=== PATIENT | male | born 1970 | race Caucasian/White ===

== ENCOUNTER 2016-04-09 10:55 | Emergency (ER) | payer MEDICAID ==
[2016-04-09 11:19] VITALS: BP 155/103
--- NOTE | 2016-04-09 13:01 | EDM.PDOC ---
ED HPI DIABETIC EMERGENCY - General Chief Complaint: Diabetic Complaint Stated Complaint: DIABETIC/FEET CRACKED REALLY BAD Time Seen by Provider: 04/09/16 11:47 Source: Reports: Patient, Family, RN notes reviewed History Limitations: Reports: No limitations - History of Present Illness INITIAL COMMENTS - FREE TEXT/NARRATIVE: 45-year-old gentleman presents emergency department today complaining of cracked feet, he has noticed blood on the bottom of his feet yesterday he thinks his feet have gotten worse over the last week or so he is also not been feeling well feeling nausea last couple of days he admits to having known history of diabetes over the last year her last hemoglobin A1c was 6.5 - Related Data Allergies/ADRs: Allergies Allergy/AdvReac Type Severity Reaction Status Date / Time codeine Allergy Hives Verified 04/09/16 11:32 morphine Allergy Itching Verified 04/09/16 11:32 Home Meds: Home Meds Fluticasone Propionate [Flonase] 1 spray NASBOTH DAILY PRN 10/22/13 [History] atorvaSTATin Calcium [Atorvastatin Calcium] 40 mg PO DAILY 10/22/13 [History] oxyCODONE 10 mg PO QID PRN 10/22/13 [History] oxyCODONE ER [OxyCONTIN] 20 mg PO BID 10/22/13 [History] Aspirin 81 mg PO DAILY 02/07/15 [History] Multivitamin with Minerals [Multiple Vitamin] 1 tab PO DAILY 02/07/15 [History] Ammonium Lactate 1 dose TOP DAILY 04/16/15 [History] Omeprazole 20 mg PO DAILY 04/16/15 [History] Sertraline HCl 100 mg PO DAILY 04/16/15 [History] Dulaglutide [Trulicity] 0.75 ml SUBCNJ WEEKLY 01/29/16 [History] Past Medical History HEENT History: Reports: Allergic rhinitis Cardiovascular History: Reports: High cholesterol, Hypertension Respiratory History: Reports: Sleep apnea Other Respiratory History: c-pap Gastrointestinal History: Reports: GERD, Irritable bowel syndrome Musculoskeletal History: Reports: Back pain, chronic Psychiatric History: Reports: Anxiety Endocrine/Metabolic History: Reports: Diabetes, type II, Obesity/BMI 30+ Dermatologic History: Reports: Cellulitis - Infectious Disease History Infectious Disease History: Reports: Chicken pox - Past Surgical History Neurological Surgical History: Reports: Lumbar spine Musculoskeletal Surgical History: Reports: Other (see below) Other Musculoskeletal Surgeries/Procedures:: back fusion L4-5 01/2014 Social & Family History - Tobacco Use Smoking Status *Q: Former Smoker Years of Tobacco use: 1 Packs/Tins Daily: 0.5 Tobacco Use Comment: Quit a month ago. Second Hand Smoke Exposure: No - Caffeine Use Caffeine Use: Reports: Coffee, Soda - Alcohol Use Days Per Week of Alcohol Use: 0 - Recreational Drug Use Recreational Drug Use: No - Living Situation & Occupation Living situation: Reports: , with spouse Occupation: employed (lives in [place], [place] with . has 4 children.) ED ROS GENERAL - Review of Systems Review Of Systems: See Below Constitutional: Reports: weakness HEENT: Reports: No symptoms Respiratory: Reports: no symptoms Cardiovascular: Reports: No symptoms GI/Abdominal: Reports: No symptoms : Reports: no symptoms Musculoskeletal: Reports: foot pain Skin: Reports: wound Neurological: Reports: no symptoms ED EXAM GENERAL NO PERIP PULSE - Physical Exam Exam: See Below Text/Narrative:: Examiner the feet demonstrates a thick callus both heels encompassing the plantar surface of the feet he does have a small open wound on the right heel approximately 7 mm in diameter otherwise no erythema is appreciated he still demonstrates hair on his toes pedal pulses palpable at 2+ Exam Limited By: No limitations General Appearance: alert, WD/WN, no apparent distress Respiratory/Chest: no respiratory distress Course - Vital Signs Last Recorded V/S: Last Vital Signs Temp 97.0 F 04/09/16 11:07 Pulse 101 H 04/09/16 11:07 Resp 18 04/09/16 11:07 BP 155/103 H 04/09/16 11:07 Pulse Ox 95 04/09/16 11:07 - Orders/Labs/Meds Labs: Laboratory Tests 04/09/16 04/09/16 04/09/16 Range/Units 12:10 12:10 12:10 WBC 11.1 H (4.5-11.0) K/uL RBC 6.08 H (4.30-5.90) M/uL Hgb 17.1 H (12.0-15.0) g/dL Hct 49.8 (40.0-54.0) % MCV 82 (80-98) fL MCH 28 (27-31) pg MCHC 34 (32-36) % Plt Count 301 (150-400) K/uL Neut % (Auto) 52 (36-66) % Lymph % (Auto) 36 (24-44) % [place] % (Auto) 9 H (2-6) % Eos % (Auto) 3 (2-4) % Baso % (Auto) 1 (0-1) % Sodium 137 L (140-148) mmol/L Potassium 4.7 (3.6-5.2) mmol/L Chloride 100 (100-108) mmol/L Carbon Dioxide 30 (21-32) mmol/L Anion Gap 11.7 (5.0-14.0) mmol/L BUN 17 (7-18) mg/dL Creatinine 1.1 (0.8-1.3) mg/dL Est Cr Clr Drug Dosing 93.08 mL/min Estimated GFR (MDRD) > 60 (>60) Glucose 169 H (74-106) mg/dL Calcium 9.0 (8.5-10.1) mg/dL C-Reactive Protein 0.63 H (0.0-0.3) mg/dL Departure - Departure Time of Disposition: 13:00 Disposition: Home, Self-Care 01 Condition: good Clinical Impression: Diabetic foot ulcer Qualifiers: Diabetes mellitus type: type 2 Laterality: right Qualified Code(s): E11.621 - Type 2 diabetes mellitus with foot ulcer; L97.519 - Non-pressure chronic ulcer of other part of right foot with unspecified severity Forms: ED Department Discharge Additional Instructions: try gabapentin one tablet 3 times a day please start the dose one tab once a day followed by 1 tablet twice a day to the full dose of one tablet 3 times a day, keep your appointment with wound care Tuesday next at 2:30 in the afternoon, call return to the ED with worsening of symptoms - Assessment/Plan Plan: Assessment Acuity = acute Site and laterality = probable diabetic foot ulcer right heel Etiology = improper foot care diabetes mellitus type 2 Manifestations = none Location of injury = home Lab values = CBC, BMP within normal limits CRP mildly elevated at 0.63 Plan I did review lab work with him I also discussed the case with the wound care clinic they agreed to see him on Tuesday of next week in the afternoon for further care and evaluation he does complain of burning and pain sensation in his feet started gabapentin 300 mg by mouth 3 times a day Patient was in agreement with the plan all questions were answered, they were instructed to return to the emergency department or call for worsening symptoms. This note was dictated using [employer] voice recognition software please call with any questions.
== END 2016-04-09 13:09 | disposition home or self-care (01) ==
LOC: JP.ED 10:55
DX: E11.621 Type 2 diabetes mellitus with foot ulcer (principal); L97.519 Non-pressure chronic ulcer of other part of right foot with unspecified severity; K21.9 Gastro-esophageal reflux disease without esophagitis; F41.9 Anxiety disorder, unspecified; E66.9 Obesity, unspecified; Z68.38 Body mass index [BMI] 38.0-38.9, adult; Z79.82 Long term (current) use of aspirin; Z88.5 Allergy status to narcotic agent; Z79.899 Other long term (current) drug therapy; Z98.1 Arthrodesis status; Z87.891 Personal history of nicotine dependence
CPT/HCPCS: 36415; 80048; 85025; 86140; 87220; 99284

== ENCOUNTER 2017-04-17 15:02 | Emergency (ER) | payer MEDICAID ==
[2017-04-17 15:33] VITALS: BP 146/89
--- NOTE | 2017-04-17 15:48 | EDM.PDOC ---
ED HPI GENERAL MEDICAL PROBLEM - General Chief Complaint: Respiratory Problem Stated Complaint: COUGHING PAIN IN BACK Time Seen by Provider: 04/17/17 15:35 Source of Information: Reports: Patient, Old Records, RN History Limitations: Reports: No Limitations - History of Present Illness INITIAL COMMENTS - FREE TEXT/NARRATIVE: 46 yo male presents with an occasionally productive cough and pain in his back with coughing. Is not SOB. Had chills last night. Did have a flu shot this winter. No sore throat. Onset Date: 04/16/17 Onset Time: 22:00 Duration: Hour(s):, Constant Location: Reports: Chest Quality: Reports: Sharp Severity: Moderate Improves with: Reports: Rest Worsens with: Reports: Movement (or coughing, deep breathing.) Context: Reports: Other (uncertain) Associated Symptoms: Reports: Cough, Fever/Chills (no definite fever.). Denies : Nausea/Vomiting, Rash, Shortness of Breath Treatments PERCHER: Reports: Other (see below) (none) upper back Pain Score (Numeric/FACES): 4 - Related Data Allergies Allergy/AdvReac Type Severity Reaction Status Date / Time codeine Allergy Hives Verified 04/09/16 11:32 morphine Allergy Itching Verified 04/09/16 11:32 Home Meds: Home Meds Fluticasone Propionate [Flonase] 1 spray NASBOTH DAILY PRN 10/22/13 [History] atorvaSTATin Calcium [Atorvastatin Calcium] 40 mg PO DAILY 10/22/13 [History] oxyCODONE 10 mg PO QID PRN 10/22/13 [History] oxyCODONE ER [OxyCONTIN] 20 mg PO BID 10/22/13 [History] Aspirin 81 mg PO DAILY 02/07/15 [History] Multivitamin with Minerals [Multiple Vitamin] 1 tab PO DAILY 02/07/15 [History] Ammonium Lactate 1 dose TOP DAILY PRN 04/16/15 [History] Omeprazole 20 mg PO DAILY 04/16/15 [History] Sertraline HCl 100 mg PO DAILY 04/16/15 [History] Dulaglutide [Trulicity] 0.75 ml SUBCNJ WEEKLY 01/29/16 [History] Past Medical History HEENT History: Reports: Allergic Rhinitis Cardiovascular History: Reports: High Cholesterol, Hypertension Respiratory History: Reports: Pneumonia, Recurrent, Sleep Apnea Other Respiratory History: c-pap Gastrointestinal History: Reports: GERD, Irritable Bowel Syndrome Genitourinary History: Reports: Renal Calculus Musculoskeletal History: Reports: Back Pain, Chronic Psychiatric History: Reports: Anxiety, Depression Endocrine/Metabolic History: Reports: Diabetes, Type II, Obesity/BMI 30+ Dermatologic History: Reports: Cellulitis, Psoriasis - Infectious Disease History Infectious Disease History: Reports: Chicken Pox - Past Surgical History Neurological Surgical History: Reports: Lumbar Spine, Spinal Fusion Social & Family History - Tobacco Use Smoking Status *Q: Current Every Day Smoker Years of Tobacco use: 25 Packs/Tins Daily: 0.2 Second Hand Smoke Exposure: No - Caffeine Use Caffeine Use: Reports: None - Alcohol Use Days Per Week of Alcohol Use: 0 - Recreational Drug Use Recreational Drug Use: No - Living Situation & Occupation Living situation: Reports: , with Spouse Occupation: Employed ED ROS GENERAL - Review of Systems Review Of Systems: See Below Constitutional: Reports: Chills HEENT: Reports: Rhinitis (minimal). Denies: Throat Pain, Throat Swelling Respiratory: Reports: Pleuritic Chest Pain, Cough, Sputum. Denies: Shortness of Breath, Wheezing, Hemoptysis Cardiovascular: Reports: No Symptoms GI/Abdominal: Reports: No Symptoms : Reports: No Symptoms Musculoskeletal: Reports: No Symptoms Skin: Reports: No Symptoms Neurological: Reports: No Symptoms Psychiatric: Reports: No Symptoms ED EXAM, GENERAL - Physical Exam Exam: See Below Exam Limited By: No Limitations General Appearance: Alert, WD/WN, No Apparent Distress Eye Exam: Bilateral Eye: Normal Inspection Ears: Normal External Exam, Normal Canal, Hearing Grossly Normal, Other ( bilateral cerumen obstuction of auditory canals) Ear Exam: Bilateral Ear: Auricle Normal Nose: Normal Inspection, Normal Mucosa, No Blood Throat/Mouth: Normal Inspection, Normal Lips, Normal Oropharynx, Normal Voice, No Airway Compromise Head: Atraumatic, Normocephalic Neck: Normal Inspection, Supple, Non-Tender Respiratory/Chest: No Respiratory Distress, Lungs Clear, Normal Breath Sounds, No Accessory Muscle Use Cardiovascular: Regular Rate, Rhythm, No Edema GI/Abdominal: Normal Bowel Sounds, Soft, Non-Tender, No Distention Back Exam: Normal Inspection. No: CVA Tenderness (R), CVA Tenderness (L) Extremities: Normal Inspection, Normal Range of Motion, Non-Tender, No Pedal Edema Neurological: Alert, Oriented, CN II-XII Intact, Normal Cognition, No Motor/ Sensory Deficits Psychiatric: Normal Affect, Normal Mood Skin Exam: Warm, Dry, Intact, Normal Color, No Rash Lymphatic: No Adenopathy Course - Vital Signs Last Recorded V/S: Last Vital Signs Temp 36.9 C 04/17/17 15:21 Pulse 84 04/17/17 15:32 Resp 18 04/17/17 15:32 BP 146/89 H 04/17/17 15:32 Pulse Ox 96 04/17/17 15:32 - Orders/Labs/Meds Labs: Laboratory Tests 04/17/17 Range/Units 15:57 WBC 8.5 (4.5-11.0) K/uL RBC 6.13 H (4.30-5.90) M/uL Hgb 17.3 H (12.0-15.0) g/dL Hct 49.8 (40.0-54.0) % MCV 81 (80-98) fL MCH 28 (27-31) pg MCHC 35 (32-36) % Plt Count 262 (150-400) K/uL Departure - Departure Time of Disposition: 16:16 Disposition: Home, Self-Care 01 Condition: Good Clinical Impression: Bronchitis, Pleurisy - Discharge Information Referrals: Mohan Roy MD [Primary Care Provider] - Forms: ED Department Discharge
== END 2017-04-17 16:26 | disposition home or self-care (01) ==
LOC: JP.ED 15:02
DX: J40 Bronchitis, not specified as acute or chronic (principal); R09.1 Pleurisy; F17.210 Nicotine dependence, cigarettes, uncomplicated; I10 Essential (primary) hypertension; K21.9 Gastro-esophageal reflux disease without esophagitis; E11.9 Type 2 diabetes mellitus without complications; Z79.82 Long term (current) use of aspirin; Z79.899 Other long term (current) drug therapy; Z88.5 Allergy status to narcotic agent
CPT/HCPCS: 36415; 85027; 87804; 99284

== ENCOUNTER 2017-10-31 11:09 | Emergency (ER) | payer MEDICAID ==
[2017-10-31] MEDS ORDERED: Sodium Chloride 0.9% 1,000 ML IV SCH (11:30)
[2017-10-31] MEDS ORDERED: Ondansetron 4 MG/2 ML SDV IVPUSH ONE (12:30)
[2017-10-31] MEDS ORDERED: HYDROmorphone 1 MG/ML Syringe IVPUSH ONE (12:30)
[2017-10-31] MEDS ORDERED: cefTRIAXone 2 GM in Sodium Chloride 0.9% 50 ML IV ONE (12:31)
--- NOTE | 2017-10-31 14:00 | EDM.PDOC ---
ED HPI GENERAL MEDICAL PROBLEM - General Chief Complaint: Gastrointestinal Problem Stated Complaint: VOMITING/RELATED TO DIABETES? Time Seen by Provider: 10/31/17 11:15 Source of Information: Reports: Patient, Family () History Limitations: Reports: No Limitations - History of Present Illness INITIAL COMMENTS - FREE TEXT/NARRATIVE: Illness for 2 weeks; this is a 47 year old male presents to the ER for evaluation of illness. His reports he has been sick for 2 weeks. gets worse then get better, has been really sick the past two days, nausea, vomiting , fatigue, last meal last night. Concerns of Tick illness, their business is [employer]. He is regularly pulling ticks off him, and last month he had developed a red circular rash on his abdomen after having an attached tick. did not seek treatment for tick exposure. Onset: Gradual Duration: Week(s): (two) Location: Reports: Generalized Quality: Reports: Same as Previous Episode (hx of treatment for tick illness, Lymes disease) Severity: Moderate Improves with: Reports: Rest Worsens with: Reports: None Context: Reports: Other (tick exposure) Associated Symptoms: Reports: Fever/Chills, Loss of Appetite, Malaise, Nausea/ Vomiting Treatments CUT OFF [employer] PIPE BLANKS: Reports: Other Medication(s) Denies Pain Score (Numeric/FACES): 0 - Related Data Allergies Allergy/AdvReac Type Severity Reaction Status Date / Time codeine Allergy Hives Verified 10/31/17 11:34 morphine Allergy Itching Verified 10/31/17 11:34 Home Meds: Home Meds Fluticasone Propionate [Flonase] 1 spray NASBOTH DAILY PRN 10/22/13 [History] atorvaSTATin Calcium [Atorvastatin Calcium] 40 mg PO DAILY 10/22/13 [History] oxyCODONE 10 mg PO QID PRN 10/22/13 [History] oxyCODONE ER [OxyCONTIN] 20 mg PO BID 10/22/13 [History] Aspirin 81 mg PO DAILY 02/07/15 [History] Multivitamin with Minerals [Multiple Vitamin] 1 tab PO DAILY 02/07/15 [History] Ammonium Lactate 1 dose TOP DAILY PRN 04/16/15 [History] Omeprazole 20 mg PO DAILY 04/16/15 [History] DULoxetine [Cymbalta] 60 mg PO DAILY 10/31/17 [History] Past Medical History HEENT History: Reports: Allergic Rhinitis Cardiovascular History: Reports: High Cholesterol, Hypertension Respiratory History: Reports: Pneumonia, Recurrent, Sleep Apnea Other Respiratory History: c-pap Gastrointestinal History: Reports: GERD, Irritable Bowel Syndrome Genitourinary History: Reports: Renal Calculus Musculoskeletal History: Reports: Back Pain, Chronic Psychiatric History: Reports: Anxiety, Depression Endocrine/Metabolic History: Reports: Diabetes, Type II, Obesity/BMI 30+ Dermatologic History: Reports: Cellulitis, Psoriasis - Infectious Disease History Infectious Disease History: Reports: Chicken Pox - Past Surgical History Neurological Surgical History: Reports: Lumbar Spine, Spinal Fusion Musculoskeletal Surgical History: Reports: Other (See Below) Other Musculoskeletal Surgeries/Procedures:: back surgery bilateral fusion L4 and L5 2013 Social & Family History - Tobacco Use Smoking Status *Q: Current Some Day Smoker Years of Tobacco use: 25 Packs/Tins Daily: 0.5 Used Tobacco, but Quit: No Second Hand Smoke Exposure: No - Caffeine Use Caffeine Use: Reports: Coffee, Soda - Recreational Drug Use Recreational Drug Use: No - Living Situation & Occupation Living situation: Reports: , with Spouse Occupation: Employed ED ROS GENERAL - Review of Systems Review Of Systems: See Below Constitutional: Reports: Fever, Chills, Malaise, Fatigue, Decreased Appetite HEENT: Reports: No Symptoms Respiratory: Reports: No Symptoms Cardiovascular: Reports: No Symptoms Endocrine: Reports: Fatigue, Other (history of diabetes, diet controlled, last HgA1c 6.1) GI/Abdominal: Reports: Decreased Appetite, Nausea, Vomiting : Reports: No Symptoms Musculoskeletal: Reports: Back Pain (acute and chronic), Muscle Pain, Muscle Stiffness Skin: Reports: No Symptoms, Other (hx of circular rash on abdomen, resolved, not treated for tick illness) Neurological: Reports: Weakness Psychiatric: Reports: No Symptoms Hematologic/Lymphatic: Reports: No Symptoms Immunologic: Reports: No Symptoms ED EXAM, GENERAL - Physical Exam Exam: See Below Exam Limited By: No Limitations General Appearance: Alert, WD/WN, Mild Distress, Other (appears ill.) Eye Exam: Bilateral Eye: Normal Inspection Ears: Normal External Exam, Normal Canal, Hearing Grossly Normal, Normal TMs Ear Exam: Bilateral Ear: Auricle Normal, Canal Normal, TM normal Nose: Normal Inspection, Normal Mucosa, No Blood Throat/Mouth: Normal Inspection, Normal Lips, Normal Teeth, Normal Gums, Normal Oropharynx, Normal Voice, No Airway Compromise Head: Atraumatic, Normocephalic Neck: Normal Inspection, Supple, Non-Tender, Full Range of Motion Respiratory/Chest: No Respiratory Distress, Lungs Clear, Normal Breath Sounds, No Accessory Muscle Use, Chest Non-Tender Cardiovascular: Regular Rate, Rhythm, No Edema, No Murmur Peripheral Pulses: 2+: Radial (L), Radial (R) GI/Abdominal: Normal Bowel Sounds, Soft, No Organomegaly, No Distention, No Abnormal Bruit, No Mass, Tender (mild tenderness from vomitng, no rebound or guarding is noted.) Back Exam: Normal Inspection, Full Range of Motion, Muscle Spasm Extremities: Normal Inspection, Normal Range of Motion, Non-Tender, Normal Capillary Refill, No Pedal Edema Neurological: Alert, Oriented, CN II-XII Intact, Normal Cognition, Normal Gait, Normal Reflexes, No Motor/Sensory Deficits Psychiatric: Normal Affect, Normal Mood Skin Exam: Warm, Dry, Intact, Normal Color, No Rash Lymphatic: No Adenopathy Course - Vital Signs Last Recorded V/S: Last Vital Signs Temp 37.4 C 10/31/17 13:00 Pulse 99 10/31/17 13:00 Resp 16 10/31/17 13:00 BP 162/98 H 10/31/17 13:00 Pulse Ox 98 10/31/17 13:00 - Orders/Labs/Meds Orders: Active Orders 24 hr Category Date Time Status BABESIA MICROTI ANTIBODY PANEL Urgent Lab 10/31/17 12:52 Received LYME, TOTAL AB TEST/REFLEX Urgent Lab 10/31/17 12:52 Received UA W/MICROSCOPIC [URIN] Urgent Lab 10/31/17 12:32 Ordered Labs: Laboratory Tests 10/31/17 10/31/17 10/31/17 Range/Units 12:52 12:52 12:52 WBC 11.4 H (4.5-11.0) K/uL RBC 5.76 (4.30-5.90) M/uL Hgb 16.4 H (12.0-15.0) g/dL Hct 46.8 (40.0-54.0) % MCV 81 (80-98) fL MCH 29 (27-31) pg MCHC 35 (32-36) % Plt Count 363 (150-400) K/uL Neut % (Auto) 82 H (36-66) % Lymph % (Auto) 14 L (24-44) % [place] % (Auto) 4 (2-6) % Eos % (Auto) 0 L (2-4) % Baso % (Auto) 0 (0-1) % Sodium 140 (140-148) mmol/L Potassium 4.1 (3.6-5.2) mmol/L Chloride 105 (100-108) mmol/L Carbon Dioxide 25 (21-32) mmol/L Anion Gap 9.9 (5.0-14.0) mmol/L BUN 13 (7-18) mg/dL Creatinine 1.1 (0.8-1.3) mg/dL Est Cr Clr Drug Dosing 91.12 mL/min Estimated GFR (MDRD) > 60 (>60) Glucose 109 H (74-106) mg/dL Calcium 8.9 (8.5-10.1) mg/dL Total Bilirubin 0.5 D (0.2-1.0) mg/dL AST 16 (15-37) U/L ALT 26 (12-78) U/L Alkaline Phosphatase 100 (46-116) U/L Total Protein 7.2 (6.4-8.2) g/dL Albumin 3.6 (3.4-5.0) g/dL Globulin 3.6 H (2.3-3.5) g/dL Albumin/Globulin Ratio 1.0 L (1.2-2.2) Amylase 44 (25-115) U/L Lipase 97 (73-393) U/L TSH, Ultra Sensitive 0.520 (0.358-3.740) uIU/mL Meds: Medications Discontinued Medications Generic Name Dose Route Start Last Admin Trade Name Freq PRN Reason Stop Dose Admin Hydromorphone HCl 1 mg 10/31/17 12:30 10/31/17 13:01 Dilaudid IVPUSH 10/31/17 12:31 1 mg ONETIME ONE Administration Sodium Chloride 1,000 mls @ 999 mls/hr 10/31/17 11:30 10/31/17 12:15 Normal Saline IV 999 mls/hr ASDIRECTED OSIRIS Administration Ceftriaxone Sodium 2 gm/ 50 mls @ 100 mls/hr 10/31/17 12:31 10/31/17 13:05 Sodium Chloride IV 10/31/17 13:00 100 mls/hr ONETIME ONE Administration Ondansetron HCl 4 mg 10/31/17 12:30 10/31/17 13:03 Zofran IVPUSH 10/31/17 12:31 4 mg ONETIME ONE Administration - Re-Assessments/Exams Free Text/Narrative Re-Assessment/Exam: 10/31/17 given IV fluids, IV Zofran, IV Dilaudid, IV Rocephin 2gram for suspected tick borne illness. labs drawn, which show elevated wbc. after IV fluids and medications, Mr. Melissa felt better, voided once, ready for discharge to home with family. 10/31/17 Labs for tick borne illness pending. Departure - Departure Time of Disposition: 14:08 Disposition: Home, Self-Care 01 Condition: Good Clinical Impression: At high risk for tick borne illness - Discharge Information *PRESCRIPTION DRUG MONITORING PROGRAM REVIEWED*: Not Applicable *COPY OF PRESCRIPTION DRUG MONITORING REPORT IN PATIENT AZAEL: Not Applicable Instructions: Tick Bite Information, Adult, [id number] Referrals: Mohan Roy MD [Primary Care Provider] - Forms: ED Department Discharge Care Plan Goals: Tick borne illness -start today Doxy 100mg by mouth two times a day for 14 days -Zofran 4 mg by mouth one every 8 hours as needed for nausea and vomiting -lab pending: Tick illness panel -follow up with Primary Care for recheck in 3 days Return to ER for worsen symptoms, nausea, vomiting, diarrhea, rash or not improved. - Problem List & Annotations (1) At high risk for tick borne illness SNOMED Code(s): 84710062 Code(s): Z91.89 - OT PERSONAL RISK FACTORS, NOT ELSEWHERE CLASSIFIED Status: Acute Priority: High - Problem List Review Problem List Initiated/Reviewed/Updated: Yes - My Orders Last 24 Hours: My Active Orders 10/31/17 12:32 UA W/MICROSCOPIC [URIN] Urgent 10/31/17 12:52 BABESIA MICROTI ANTIBODY PANEL Urgent LYME, TOTAL AB TEST/REFLEX Urgent - Assessment/Plan Last 24 Hours: My Active Orders 10/31/17 12:32 UA W/MICROSCOPIC [URIN] Urgent 10/31/17 12:52 BABESIA MICROTI ANTIBODY PANEL Urgent LYME, TOTAL AB TEST/REFLEX Urgent Plan: Tick borne illness -start today Doxy 100mg by mouth two times a day for 14 days -Zofran 4 mg by mouth one every 8 hours as needed for nausea and vomiting -lab pending: Tick illness panel -follow up with Primary Care for recheck in 3 days Return to ER for worsen symptoms, nausea, vomiting, diarrhea, rash or not improved.
[2017-10-31 14:14] VITALS: BP 162/98
[2017-11-03 09:14] LABS: LYME IGG/IGM AB <0.91 ISR (0.00-0.90)
[2017-11-03 17:10] LABS: BABESIA MICROTI IGG <1:10 (Neg:<1:10); BABESIA MICROTI IGM <1:10 (Neg:<1:10)
== END 2017-10-31 14:08 | disposition home or self-care (01) ==
LOC: JP.ED 11:09
DX: R11.2 Nausea with vomiting, unspecified (principal); R53.83 Other fatigue; I10 Essential (primary) hypertension; E11.9 Type 2 diabetes mellitus without complications; F17.210 Nicotine dependence, cigarettes, uncomplicated; K21.9 Gastro-esophageal reflux disease without esophagitis; Z79.82 Long term (current) use of aspirin; Z79.899 Other long term (current) drug therapy; Z88.5 Allergy status to narcotic agent; Z91.89 Other specified personal risk factors, not elsewhere classified
CPT/HCPCS: 36415; 80053; 82150; 83690; 84443; 85025; 86753; 96365; 96375; 99284; J0696; J1170; J2405; J7030; J7050; 86618

== ENCOUNTER 2018-03-04 12:25 | Emergency (ER) | payer MEDICAID ==
[2018-03-04 13:05] VITALS: BP 169/96
--- NOTE | 2018-03-04 15:30 | EDM.PDOC ---
ED HPI GENERAL MEDICAL PROBLEM - General Chief Complaint: Upper Extremity Injury/Pain Stated Complaint: Rt. middle finger pain Time Seen by Provider: 03/04/18 13:13 Source of Information: Reports: Patient History Limitations: Reports: No Limitations - History of Present Illness INITIAL COMMENTS - FREE TEXT/NARRATIVE: This patient said that yesterday he was moving a wood stove when his helper apparently let it slip he got his right hand crushed between 2 pieces of firewood and then he this caused him to fall and he landed on his left shoulder. He complains of pain just kind of in the left shoulder around the the joint capsule area and pain to the left right middle finger the pad of the proximal phalanx and he thinks maybe there is a foreign body in there. - Related Data Allergies Allergy/AdvReac Type Severity Reaction Status Date / Time codeine Allergy Hives Verified 03/04/18 12:48 morphine Allergy Itching Verified 03/04/18 12:48 Home Meds: Home Meds Fluticasone Propionate [Flonase] 1 spray NASBOTH DAILY PRN 10/22/13 [History] oxyCODONE 10 mg PO QID PRN 10/22/13 [History] oxyCODONE ER [OxyCONTIN] 20 mg PO BID 10/22/13 [History] Aspirin 81 mg PO DAILY 02/07/15 [History] Multivitamin with Minerals [Multiple Vitamin] 1 tab PO DAILY 02/07/15 [History] Ammonium Lactate 1 dose TOP DAILY PRN 04/16/15 [History] Omeprazole 20 mg PO DAILY 04/16/15 [History] DULoxetine [Cymbalta] 30 mg PO DAILY 10/31/17 [History] Past Medical History HEENT History: Reports: Allergic Rhinitis Cardiovascular History: Reports: High Cholesterol, Hypertension Respiratory History: Reports: Pneumonia, Recurrent, Sleep Apnea Other Respiratory History: c-pap Gastrointestinal History: Reports: GERD, Irritable Bowel Syndrome Genitourinary History: Reports: Renal Calculus Musculoskeletal History: Reports: Back Pain, Chronic Psychiatric History: Reports: Anxiety, Depression Endocrine/Metabolic History: Reports: Diabetes, Type II, Obesity/BMI 30+ Dermatologic History: Reports: Cellulitis, Psoriasis - Infectious Disease History Infectious Disease History: Reports: Chicken Pox - Past Surgical History Neurological Surgical History: Reports: Lumbar Spine, Spinal Fusion Musculoskeletal Surgical History: Reports: Other (See Below) Other Musculoskeletal Surgeries/Procedures:: back surgery bilateral fusion L4 and L5 2013 Social & Family History - Tobacco Use Smoking Status *Q: Current Every Day Smoker Years of Tobacco use: 10 Packs/Tins Daily: 0.2 - Caffeine Use Caffeine Use: Reports: Coffee, Soda - Living Situation & Occupation Living situation: Reports: , with Spouse Occupation: Employed Review of Systems - Review of Systems Review Of Systems: ROS reveals no pertinent complaints other than HPI. ED EXAM, GENERAL - Physical Exam Exam: See Below Exam Limited By: No Limitations General Appearance: Alert, No Apparent Distress Extremities: Other (The right middle finger on the palmar surface on the pad looks like there could be a splinter going through the pad of C2 little black specks by about 5 mm looks like it could be a splinter that went through and through. It's mildly tender does not look infected. Patient is worried it might be infected because he has diabetes. The left shoulder is mildly tender but there is good range of motion) Course - Vital Signs Last Recorded V/S: Last Vital Signs Temp 36.7 C 03/04/18 12:59 Pulse 74 03/04/18 12:59 Resp 14 03/04/18 12:59 BP 169/96 H 03/04/18 12:59 Pulse Ox 97 03/04/18 12:59 - Re-Assessments/Exams Free Text/Narrative Re-Assessment/Exam: 03/04/18 15:29 03/04/18 15:09 I used a #15 blade to try to scrape a little black things on his finger was unsuccessful so then took splinter forceps and I was able to pick off these little black specks. I'm satisfied that this is not a splinter and that I got all of the material out. The black specks were just barely buried into the skin. I palpated the area afterwards and again I'm satisfied there is no foreign body. We'll cover him with an antibiotic just to be on the safe side since he does have diabetes Departure - Departure Time of Disposition: 15:30 Disposition: Home, Self-Care 01 Condition: Fair Clinical Impression: Finger contusion, Left shoulder strain - Discharge Information Instructions: Muscle Strain, [id number], Contusion, [id number] Referrals: Mohan Roy MD [Primary Care Provider] - Forms: ED Department Discharge Additional Instructions: Wash the middle finger with soap and water once or twice daily apply a dab of antibiotic ointment and keep covered with a bandage. Do this for 2 or 3 days. Take the cephalexin 500 mg 3 times a day for 5 days that's is sufficient. If you have more problems with the finger are shoulder then see your Dr. or return to the ER. It's best to remain active keep your shoulder working take Tylenol or ibuprofen as needed for pain.
--- NOTE | 2018-03-06 08:51 | CR ---
Shoulder Comp Lt CLINICAL HISTORY: Pain, trauma FINDINGS: There is no acute fracture or dislocation in the left shoulder. There is a nodular density near the bicipital groove. Impression: No fracture or dislocation Density near the bicipital groove could be some superimposition or possibly calcific biceps tendinosis
--- NOTE | 2018-03-06 08:53 | CR ---
Fingers Third Digit Rt F7 CLINICAL HISTORY: Possible foreign body FINDINGS: No radiopaque foreign bodies identified in the third digit. No osseous lesion or fracture seen. There is some soft tissue swelling IMPRESSION: Soft tissue swelling Negative for radiopaque foreign body
== END 2018-03-04 15:37 | disposition home or self-care (01) ==
LOC: JP.ED 12:25
DX: S46.912A Strain of unspecified muscle, fascia and tendon at shoulder and upper arm level, left arm, initial encounter (principal); S60.031A Contusion of right middle finger without damage to nail, initial encounter; F17.210 Nicotine dependence, cigarettes, uncomplicated; W20.8XXA Other cause of strike by thrown, projected or falling object, initial encounter; Z88.5 Allergy status to narcotic agent; Z79.899 Other long term (current) drug therapy; Z79.82 Long term (current) use of aspirin
CPT/HCPCS: 73030-26-LT; 73030-LT; 73140-26-F7; 73140-F7; 99284

== ENCOUNTER 2018-04-13 12:36 | Emergency (ER) | payer MEDICAID ==
[2018-04-13] MEDS ORDERED: HYDROmorphone 1 MG/ML Syringe IM ONE ×2 (14:05→16:56)
[2018-04-13] MEDS ORDERED: Nitroglycerin 0.4 MG Tab.SL SL ONE ×2 (14:05→15:33)
--- NOTE | 2018-04-13 14:14 | EDM.PDOC ---
<Soniya Hawkins - Last Filed: 04/13/18 17:05> ED HPI GENERAL MEDICAL PROBLEM - General Chief Complaint: Neck Problem Stated Complaint: HIGH BLOOD PRESSURE Time Seen by Provider: 04/13/18 14:06 - History of Present Illness INITIAL COMMENTS - FREE TEXT/NARRATIVE: Larry Melissa is a 47 year old male, accompanied by his , with concerns of high blood pressure and neck pain. He was at the [facility] in [place] to receive injections prior to reporting to the ER. Since his blood pressure was 209/136, they were not able to do the procedure. They stated he needs to have his blood pressure under control for 4 days, prior to the injection. He is in a tremendous amount of pain in his cervical neck region. His last dose of Oxycodone was this AM. He reports a headache and lightheadedness for about 2 weeks. His states he had been on hypertension medication, but discontinued the medication when he lost 70 pounds, about one year ago. His chart was reviewed and there was not any past medical history of hypertension. He did have hypercholesteremia, which he took Atorvastatin, and had discontinued it after his weight loss. He indicates his right side has also been numb, since his cervical neck injury 3 months ago. He denies taking his blood pressure at home. He denies any chest pain, shortness of breath, abdominal pain, changes in bowel or bladder. Further symptoms are denied at this time. - Related Data Allergies Allergy/AdvReac Type Severity Reaction Status Date / Time amlodipine [From [facility]] Allergy Other Verified 04/13/18 13:50 codeine Allergy Hives Verified 04/13/18 13:17 cortisone Allergy Other Verified 04/13/18 13:50 fenofibrate Allergy Other Verified 04/13/18 13:50 fentanyl Allergy Chest Verified 04/13/18 13:50 Tightness lisinopril Allergy Rash Verified 04/13/18 13:50 metformin Allergy Diarrhea Verified 04/13/18 13:50 morphine Allergy Itching Verified 04/13/18 13:17 orphenadrine Allergy Other Verified 04/13/18 13:50 Home Meds: Home Meds Fluticasone Propionate [Flonase] 1 spray NASBOTH DAILY PRN 10/22/13 [History] oxyCODONE 10 mg PO QID PRN 10/22/13 [History] oxyCODONE ER [OxyCONTIN] 20 mg PO BID 10/22/13 [History] Aspirin 81 mg PO DAILY 02/07/15 [History] Multivitamin with Minerals [Multiple Vitamin] 1 tab PO DAILY 02/07/15 [History] Ammonium Lactate 1 dose TOP DAILY PRN 04/16/15 [History] Omeprazole 20 mg PO DAILY 04/16/15 [History] DULoxetine [Cymbalta] 30 mg PO DAILY 10/31/17 [History] Naloxone HCl [Narcan] 0.1 ml INH ASDIRECTED PRN 04/13/18 [History] Past Medical History HEENT History: Reports: Allergic Rhinitis Cardiovascular History: Reports: High Cholesterol, Hypertension Respiratory History: Reports: Pneumonia, Recurrent, Sleep Apnea Other Respiratory History: c-pap Gastrointestinal History: Reports: GERD, Irritable Bowel Syndrome Genitourinary History: Reports: Renal Calculus Musculoskeletal History: Reports: Back Pain, Chronic Psychiatric History: Reports: Anxiety, Depression Endocrine/Metabolic History: Reports: Diabetes, Type II, Obesity/BMI 30+ Dermatologic History: Reports: Cellulitis, Psoriasis - Infectious Disease History Infectious Disease History: Reports: Chicken Pox - Past Surgical History Neurological Surgical History: Reports: Lumbar Spine, Spinal Fusion Musculoskeletal Surgical History: Reports: Other (See Below) Other Musculoskeletal Surgeries/Procedures:: back surgery bilateral fusion L4 and L5 2013 Social & Family History - Tobacco Use Smoking Status *Q: Current Every Day Smoker Years of Tobacco use: 15 Packs/Tins Daily: 0.1 - Caffeine Use Caffeine Use: Reports: Coffee, Soda - Recreational Drug Use Recreational Drug Use: No - Living Situation & Occupation Living situation: Reports: , with Spouse Occupation: Employed ED ROS GENERAL - Review of Systems Review Of Systems: ROS reveals no pertinent complaints other than HPI. ED EXAM, UPPER BACK/NECK PAIN - Physical Exam Exam: See Below Exam Limited By: Other (Physical exam was limitied to due cervical neck pain) General Appearance: Alert, WD/WN, Moderate Distress Ears Exam: Hearing Grossly Normal, Normal TMs Nose Exam: Normal Inspection, Normal Mucousa Throat/Mouth Exam: Normal Inspection, Normal Lips, Normal Teeth, Normal Gums, Normal Oropharynx, No Airway Compromise Head Exam: Atraumatic, Normocephalic Neck Exam: Other (Significant tenderness upon palpation of neck region) Cardiovascular/Respiratory: Regular Rate, Rhythm GI/Abdominal: Soft, Non-Tender, No Distention, No Mass Back Exam: Other (unable to perform due to pain) Extremities: Normal Inspection, No Pedal Edema Neurologic: No Motor/Sensory Deficits, Alert Psychiatric: Flat Affect Skin Exam: Other (psorasis present on scalp and surrounding ears/external auditory ear canals ) Course - Vital Signs Last Recorded V/S: Last Vital Signs Temp 95.9 F 04/13/18 13:20 Pulse 87 04/13/18 15:52 Resp 16 04/13/18 13:20 BP 146/104 H 04/13/18 17:03 Pulse Ox 98 04/13/18 13:20 - Orders/Labs/Meds Meds: Medications Discontinued Medications Generic Name Dose Route Start Last Admin Trade Name Jamie PRN Reason Stop Dose Admin Hydrochlorothiazide 25 mg 04/13/18 15:33 04/13/18 15:49 Hydrochlorothiazide PO 04/13/18 15:34 25 mg ONETIME ONE Administration Hydromorphone HCl 1 mg 04/13/18 14:05 04/13/18 14:12 Dilaudid IM 04/13/18 14:06 1 mg ONETIME ONE Administration Hydromorphone HCl 1 mg 04/13/18 16:56 04/13/18 17:02 Dilaudid IM 04/13/18 16:57 1 mg ONETIME ONE Administration Nitroglycerin 0.4 mg 04/13/18 14:05 04/13/18 14:12 Nitrostat SL 04/13/18 14:06 0.4 mg ONETIME ONE Administration Nitroglycerin 0.4 mg 04/13/18 15:33 04/13/18 15:49 Nitrostat SL 04/13/18 15:34 0.4 mg ONETIME ONE Administration Oxycodone HCl 10 mg 04/13/18 14:50 04/13/18 14:57 Oxycodone PO 04/13/18 14:51 10 mg ONETIME ONE Administration Departure - Departure Time of Disposition: 17:05 Disposition: Home, Self-Care 01 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 - Discharge Information Referrals: Mohan Roy MD [Primary Care Provider] - Forms: ED Department Discharge Additional Instructions: Continue on your regular medications, use the hydrocodone as needed for breakthrough pain keep your follow-up appointment with your primary care provider tomorrow, call return to the emergency department worsening of symptoms <OfficerEdgard - Last Filed: 04/13/18 17:08> ED HPI GENERAL MEDICAL PROBLEM - General Source of Information: Reports: Patient, Family History Limitations: Reports: No Limitations neck Pain Score (Numeric/FACES): 5 ED EXAM, UPPER BACK/NECK PAIN - Physical Exam Text/Narrative:: Agree with below Departure - Departure Condition: Fair - Assessment/Plan Plan: Assessment Acuity = chronic Site and laterality = neck pain secondary to neural foraminal stenosis multiple levels cervical region Etiology = unknown etiology Manifestations = none Location of injury = Home Lab values = none Plan Good relief of his pain with 2 mg of Dilaudid provided IM as well as started him on hydrochlorothiazide 25 mg by mouth daily 1 dose of nitroglycerin sublingual given for blood pressure control, he has a follow-up appointment with his primary care provider tomorrow prescription written also for hydrocodone 7.5/325 one tab by mouth 3 times a day when necessary total #10 This note was dictated using [employer] voice recognition software please call with any questions on syntax or grammar.
[2018-04-13] MEDS ORDERED: oxyCODONE 5 MG Tab PO ONE (14:50)
[2018-04-13] MEDS ORDERED: Hydrochlorothiazide 25 MG Tab PO ONE (15:33)
[2018-04-13 17:03] VITALS: BP 146/104
== END 2018-04-13 17:26 | disposition home or self-care (01) ==
LOC: JP.ED 12:36
DX: M48.02 Spinal stenosis, cervical region (principal); I10 Essential (primary) hypertension; E78.00 Pure hypercholesterolemia, unspecified; K21.9 Gastro-esophageal reflux disease without esophagitis; E11.9 Type 2 diabetes mellitus without complications; F17.210 Nicotine dependence, cigarettes, uncomplicated; Z79.899 Other long term (current) drug therapy; Z88.5 Allergy status to narcotic agent; Z88.8 Allergy status to other drugs, medicaments and biological substances
CPT/HCPCS: 96372; 99283; A9270; J1170

== ENCOUNTER 2021-08-08 09:00 | Emergency (ER) | payer MEDICAID ==
[2021-08-08] MEDS ORDERED: Ondansetron 4 MG Tab.DIS PO ONE (09:54)
[2021-08-08] MEDS ORDERED: oxyCODONE 5 MG Tab PO ONE (09:55)
[2021-08-08 10:28] VITALS: BP 162/106
[2021-08-08 11:12] VITALS: PULSE 80
== END 2021-08-08 11:21 | disposition home or self-care (01) ==
LOC: JP.ED 09:00
DX: K57.90 Diverticulosis of intestine, part unspecified, without perforation or abscess without bleeding (principal); G89.29 Other chronic pain; I10 Essential (primary) hypertension; E11.9 Type 2 diabetes mellitus without complications; F41.9 Anxiety disorder, unspecified; F32.A Depression, unspecified; E78.00 Pure hypercholesterolemia, unspecified; Z79.899 Other long term (current) drug therapy; Z88.5 Allergy status to narcotic agent; Z88.8 Allergy status to other drugs, medicaments and biological substances
CPT/HCPCS: 36415; 81001; 85025; 85651; 86140; 99284; A9270; Q0162